=== PATIENT | male | born 1980 | race Caucasian/White ===

== ENCOUNTER 2024-11-15 10:19 | Outpatient (REF) | payer MEDICAID, SELFPAY ==
--- OUTSIDE RECORDS SUMMARY | 2024-11-15 11:46 | XMS_ITS | Clinical Summary ---
Author Organization [employer] Address [address] [facility] [address] [place] [address] Care Team Providers Care Honeycomb Blanket Maker Name Role Phone Gretel Johnson MD Primary Care Provider [phone] Allergies No known active allergies Medications No known medications Active Problems No known active problems Encounters Date Type Department Care Team Description 11/14/2024 9:45 AM EDT Telemedicine [facility] [address] [place] [address] Gretel Johnson MD Urinary tract infection without hematuria, site unspecified (Primary Dx) 11/14/2024 Travel 11/06/2024 Patient Outreach [facility] [address] [place] [address] Gretel Johnson MD Pre-visit Planning ([facility]DE unable to reach [facility] ) 09/11/2024 Telephone [facility] [address] [place], [place] [phone] Denny Redmond MD New Pt from Last 3 Months Social History Tobacco Use Types Packs/Day Years Used Date Smoking Tobacco: Never Smokeless Tobacco: Never Tobacco Cessation:Counseling Given: Not Answered Alcohol Use Standard Drinks/Week Comments Never 0 (1 standard drink = 0.6 oz pur e alcohol) Depression Answer Date Recorded Patient Health Questionnaire-9 Score 2 11/14/2024 Patient Health Questionnaire-9 Score 2 11/14/2024 Last PHQ-9: Questionnaire Data Not on file 0 11/14/2024 Housing Stability Answer Date Recorded What is your housing situation today? I have scott andrews 11/14/[address] you li ve. Do you have problems with any of the following? None of the above 11/14/2024 Food Insecurity Answer Date Recorded Within the past 12 months, y ou worried that your food would run out before you got money to buy more: Never True 11/14/2024 Within the past 12 months,th e food you bought just didn't last and you didn't have enough money to get more: Never True Transportation Answer Date Recorded In the past 12 months, has l ack of transportation kept you from medical appts, meetings, work or from getting things needed for daily living? No 11/14/2024 Utilities Answer Date Recorded In the past 12 months, has t he electric, gas, oil or water company threatened to shut off services in your home? No 11/14/2024 Depression Answer Date Recorded Patient Health Questionnaire-2 Score 2 11/14/2024 Internet Access Answer Date Recorded Internet Access Q1 No 11/14/2024 Internet Access Q2 I do not want or need it 11/02 Sex and Gender Information Value Date Recorded Sex Assigned at Male 11/14/2024 8:26 AM EDT Legal Sex Male 3:53 PM EST Gender Identity Male 11/14/2024 8:26 AM EDT Sexual Orientation Straight 11/14/2024 8: 26 AM EDT Plan of Treatment Upcoming Encounters Date Type Department Care Team (Late st Contact Info) Description 02/25/2025 10:15 AM EDT Office Visit [facility] [address] [place] [address] Gretel Johnson MD [address] [place] [address] Health Maintenance Due Date Last Done Comments HIV Screening 1980 Lipid Panel 1980 Family Planning (PISQ) 1995 Hepatitis C Screening 1998 DTaP/Tdap/Td Vaccines (1 - Tdap) 1999 Hepatitis B Vaccines (1 of 3 - 19+ 3-dose series) 1999 COVID-19 Vaccine ( - 2023-2 5 season) 2024 Influenza Vaccine (#1) 2024 Alcohol/Substance Use Screening 11/14/2025 11/14/2024 Depression Screening 11/14/2025 11/14/2024, 11/14/2024 SDOH Screening 11/14/2025 11/14/2024 Tobacco Screening 11/14/2025 11/14/2024 Zoster Vaccines (1 of 2) 2030 RSV Patients and Patients Aged 60 years or older (1 - 1-dose 75+ series) 2055 HIB Vaccines Aged Out No longer eligi ble based on patient's age to complete this topic HPV Vaccines Aged Out No longer eligi ble based on patient's age to complete this topic Hepatitis A Vaccines Aged Out No long er eligible based on patient's age to complete this topic IPV Vaccines Aged Out No longer eligi ble based on patient's age to complete this topic Meningococcal Vaccine Aged Out No blake amina eligible based on patient's age to complete this topic Pneumococcal Vaccine: Pediatrics (0 to 5 Years) and At-Risk Patients (6 to 49) Years) Aged Out No longer eligible b ased on patient's age to complete this topic RSV under 20 months Aged Out No longe r eligible based on patient's age to complete this topic Rotavirus Vaccines Aged Out No longer eligible based on patient's age to complete this topic Insurance [facility] F[facility] Care Teams Honeycomb Blanket Maker Relationship Specialty Start Date End Date Gretel Johnson MD [address] [place] [address] [id number] PCP - General Family Medicine 11/14/24
--- OUTSIDE RECORDS SUMMARY | 2024-11-15 11:46 | XMS_ITS | Encounter Summary ---
Author Organization [employer] Address [address] [facility] [address] [place] [address] Care Team Providers Care Social Secretary Name Role Phone Gretel Johnson MD Primary Care Provider [phone] Encounter Details Date Type Department Care Team (Latest Contact Info) Description 11/14/2024 Travel Social History Tobacco Use Types Packs/Day Years Used Date Smoking Tobacco: Never Smokeless Tobacco: Never Alcohol Use Standard Drinks/Week Comments Never 0 (1 standard drink = 0.6 oz pur e alcohol) Depression Answer Date Recorded Patient Health Questionnaire-9 Score 2 11/14/2024 Patient Health Questionnaire-9 Score 2 11/14/2024 Last PHQ-9: Questionnaire Data Not on file 0 11/14/2024 Housing Stability Answer Date Recorded What is your housing situation today? I have scotturiel andrews 11/14/[address] you [...] I do not want or need it 03/1 11/2024 Sex and Gender Information Value Date Recorded Sex Assigned at Male 11/14/2024 8:26 AM EDT Legal Sex Male 3:53 PM EST Gender Identity Male 11/14/2024 8:26 AM EDT Sexual Orientation Straight 11/14/2024 8: 26 AM EDT documented as of this encounter Plan of Treatment Upcoming Encounters Date Type Department Care Team (Late st Contact Info) Description 02/25/2025 10:15 AM EDT Office Visit [facility] [address] [facility] [phone] Gretel Johnson MD [address] [place] [address] documented as of this encounter Visit Diagnoses Not on filedocumented in this encounter Additional Health Concerns Assessment Noted Time PHQ-9 Depression Total Score: 2 11/15/19 25 9:21 AM EDT documented as of this encounter Care Teams Social Secretary Relationship Specialty Start Date End Date Gretel Johnson MD [address] [facility] [place] [id number] PCP - General Family Medicine 11/14/24 documented as of this encounter
--- OUTSIDE RECORDS SUMMARY | 2024-11-15 11:47 | XMS_ITS | Encounter Summary ---
Author Organization [employer] Address [address] [facility] [address] [place] [address] Care Team Providers Care Wash House Worker Name Role Phone Unavailable Primary Care Provider Unavailabl e Reason for Visit * Reason Comments Pre-visit Planning SDOH unable to reach [facility] Encounter Details Date Type Department Care Team (Late Contact Info) Description 11/06/2024 Patient Outreach [facility] [address] [place] [address] Gretel Johnson MD [address] [place] [address] Pre-visit Planning (SDOH unable to reach [facility] ) Social History Tobacco Use Types Packs/Day Years Used Date Smoking Tobacco: Never Assessed Sex and Gender Information Value Date Recorded Sex Assigned at Male 11/14/2024 8:26 AM EDT Legal Sex Male 3:53 PM EST Gender Identity Male 11/14/2024 8:26 AM EDT Sexual Orientation Straight 11/14/2024 8: 26 AM EDT documented as of this encounter Progress Notes * Erika Iniguez - 11/06/2024 3:26 PM EST MARLENE Magaña placed outbound call to patient to complete pre-visit planning. No answer at this time. Patient name and were not confirmed. CC left voicemail requesting return call. Direct contactinformation provided. documented in this encounter Plan of Treatment Upcoming Encounters Date Type Department Care Team (Late Contact Info) Description 02/25/2025 10:15 AM EDT Office Visit [facility] [address] [place] [address] Gretel Johnson MD [address] [place] [address] documented as of this encounter Visit Diagnoses Not on filedocumented in this encounter
--- OUTSIDE RECORDS SUMMARY | 2024-11-15 11:47 | XMS_ITS | Encounter Summary ---
Author Organization [employer] Address [address] [facility] [address] [place] [address] Care Team Providers Care Certified Master Locksmith Name Role Phone Gretel Johnson MD Primary Care Provider [phone] Reason for Visit * Reason Comments Establish Care Encounter Details Date Type Department Care Team (Late st Contact Info) Description 11/14/2024 9:45 AM EDT Telemedicine [facility] [address] [place], [place] [phone] Gretel Johnson MD [address] [place] [address] Urinary tract infection without hematuria, site unspecified (Primary Dx) Social History Tobacco Use Types Packs/Day Years [...] as of this encounter Progress Notes * Gretel Johnson MD - 11/14/2024 9:45 AM EDT Subjective Patient ID: Gianluca Madrid is a 44 y.o. male who presents for Establish Care. UTI This is a new problem. The problem is unchanged. (Foaming of urine) Review of Systems Constitutional: Negative. Respiratory: Negative. Cardiovascular: Negative. Gastrointestinal: Negative. Genitourinary: Negative. Objective Physical Exam Psychiatric: Mood and Affect: Mood normal. Behavior: Behavior normal. Thought Content: Thought content normal. Judgment: Judgment normal. Assessment/Plan Diagnoses and all orders for this visit: Urinary tract infection without hematuria, site unspecified Comments: UA ordered Will decide management accordingly Advised to increase fluid intake Orders: - Urinalysis, Complete, with Reflex to Culture; Future documented in this encounter Plan of Treatment Upcoming Encounters Date Type Department Care Team (Late st Contact Info) Description 02/25/2025 10:15 AM EDT Office Visit [facility] [address] [place] [address] Gretel Johnson MD [address] [facility] [place] [address] Scheduled Orders Name Type Priority Associated Diagnoses Orde r Schedule Urinalysis, Complete, with Reflex to Culture Lab Routine Urinary tract infection without hematuria, site unspecified Expected: 11/14/2024 (Approximate), Expires: 11/14/2025 documented as of this encounter Visit Diagnoses Diagnosis Urinary tract infection without hematuria, site unspecified- Primary documented in this encounter Additional Health Concerns Assessment Noted Time PHQ-9 Depression Total Score: 2 11/15/19 25 9:21 AM EDT documented as of this encounter Care Teams Certified Master Locksmith Relationship Specialty Start Date End Date Gretel Johnson MD [address] [place] [id number] PCP - General Family Medicine 11/14/24 documented as of this encounter
[2024-11-15 14:46] LABS: Appearance Urine Clear; Color Urine Yellow; Glucose Urine UA Negative (Negative); Leukocyte Esterase Urine Negative (Negative); Nitrite Urine Negative (Negative); PH 5.5 (5.0-9.0); Specific Gravity - Urine 1.015 (1.005-1.025); Urine Blood Negative (Negative); Urine Ketones Negative (Negative); Urine Protein Negative (Neg-Trace)
[2024-11-15 14:49] LABS: Bacteria Urine None Seen (None Seen); Hyaline Casts Urine 0-2 /LPF (0-2); RBC Urine 0-2 /HPF (0-2); Squamous Epithelial Cell Urine 0-2 /HPF (0-2); WBC Urine 0-5 /HPF (0-5)
== END 2024-11-15 10:20 | disposition home or self-care (01) ==
LOC: HO.CHCLDS 10:19
PROVIDERS: Visit Provider Student in an Organized Health Care Education/Training Program
DX: N39.0 Urinary tract infection, site not specified (principal)
CPT/HCPCS: 81001